=== PATIENT | male | born 1950 | race African-American/Black ===

== ENCOUNTER 2020-03-21 11:23 | Inpatient (IN) | payer MEDICARE ==
[~2020-03-21] VITALS: Ht 182.9 cm; Wt 136.1 kg
[2020-03-21 12:25] LABS: HEMATOCRIT. 41.3 % (42.0-52.0); HEMOGLOBIN. 14.1 g/dL (14.0-18.0); MEAN CORPUSCULAR HEMOGLOBIN 32.7 pg (28.0-32.0); MEAN CORPUSCULAR VOLUME 95.6 fL (80.0-94.0); MEAN PLATELET VOLUME 8.6 fl (7.4-10.4); PLATELET 104 x1000/uL (130-400); RED BLOOD CELL COUNT 4.32 mill/uL (4.7-6.1); RED CELL DISTRIBUTION WIDTH 14.6 % (11.6-14.6)
[2020-03-21 12:32] LABS: CHLORIDE 103 mEq/L (98-107)
[2020-03-21 12:35] LABS: INR 1.2; PROTHROMBIN TIME 12.5 sec (9.6-11.0)
[2020-03-21 13:07] LABS: PLATELET ESTIMATE DECREASED
[2020-03-21] MEDS ORDERED: LEVOFLOXACIN 750MG PREMIX 150 ML IV ONE (13:15)
[2020-03-21] MEDS ORDERED: SUCCINYLCHOLINE CHLORIDE 200MG/10ML IV ONE (14:00)
[2020-03-21] MEDS ORDERED: PROPOFOL 10MG/ML 100ML 100 ML IV ONE (14:00)
[2020-03-21] MEDS ORDERED: ETOMIDATE 2MG/ML 10ML VIAL IV ONE (14:00)
[2020-03-21 14:01] LABS: BG BASE EXCESS -1.4 mmol/L (-2.0-2.0); BG CARBOXYHEMOGLOBIN 0.4 % (0.5-1.5); BG DEOXYHEMOGLOBIN 14.6 % (0.0-5.0); BG FRACTION INSPIRED OXYGEN 36; BG HCO3 ACT 21.2 mmol/L (22.0-26.0); BG METHEMOGLOBIN 0.2 % (0.0-1.5); BG OXYGEN SATURATION 85.3 % (92.0-98.5); BG OXYHEMOGLOBIN 84.8 % (94.0-97.0); BG PCO2 31.1 mmHg (35.0-45.0); BG PH 7.451 (7.350-7.450); BG PO2 45.4 mmHg (75.0-100.0); BG SAMPLE SITE LEFT RADIAL; BG TOTAL HEMOGLOBIN 18.7 g/dL (12.0-18.0); BG TOTAL RESPIRATORY RATE 49 b/min; BG VENT MODE NASAL CANNULA
[2020-03-21] MEDS ORDERED: NOREPINEPHRINE 8 MG in DEXT 5% WATER 242 ML IV STA (15:31)
[2020-03-21] MEDS ORDERED: NOREPINEPHRINE 8MG/250ML PMX 242 ML IV STA (15:46)
[2020-03-21 16:51] LABS: CLARITY URINE CLEAR (CLEAR); COLOR URINE DARK YELLOW (YELLOW); KETONES URINE TRACE (NEGATIVE); LEUKOCYTE ESTERASE URINE NEGATIVE (NEGATIVE); NITRITE URINE NEGATIVE (NEGATIVE); OCCULT BLOOD URINE NEGATIVE (NEGATIVE); PROTEIN URINE 1+ (NEGATIVE); SPECIFIC GRAVITY URINE 1.026 (1.005-1.030)
[2020-03-21] MEDS ORDERED: CLONIDINE 0.1MG TABLET PO PRN (17:15)
[2020-03-21] MEDS ORDERED: NOREPINEPHRINE 8 MG in DEXT 5% WATER 242 ML IV PRN (17:15)
[2020-03-21] MEDS ORDERED: NA PHOS,M-B/NA PHOS,DI-BA ENEMA 118ML PR PRN (17:15)
[2020-03-21] MEDS ORDERED: MAGNESIUM/ALUMINUM HYDROXIDE/SIMETHICONE 30ML UDC PO PRN (17:15)
[2020-03-21] MEDS ORDERED: ONDANSETRON HCL 4MG/2ML INJ IV PRN (17:15)
[2020-03-21] MEDS ORDERED: DOCUSATE SODIUM 100MG CAPSULE PO PRN (17:15)
[2020-03-21] MEDS ORDERED: ACETAMINOPHEN 325MG TABLET PO PRN ×2 (17:15)
[2020-03-21] MEDS ORDERED: ALBUTEROL 6.7GM HFA INHALER ORI PRN (17:30)
[2020-03-21] MEDS ORDERED: NOREPINEPHRINE 8MG/250ML PMX 250 ML IV PRN (17:48)
[2020-03-21 18:31] LABS: BG BASE EXCESS -1.2 mmol/L (-2.0-2.0); BG CARBOXYHEMOGLOBIN 0.5 % (0.5-1.5); BG DEOXYHEMOGLOBIN 5.2 % (0.0-5.0); BG FRACTION INSPIRED OXYGEN 100; BG HCO3 ACT 22.4 mmol/L (22.0-26.0); BG METHEMOGLOBIN 0.2 % (0.0-1.5); BG OXYGEN SATURATION 94.8 % (92.0-98.5); BG OXYHEMOGLOBIN 94.1 % (94.0-97.0); BG PCO2 34.2 mmHg (35.0-45.0); BG PH 7.434 (7.350-7.450); BG PO2 68.9 mmHg (75.0-100.0); BG SAMPLE SITE RIGHT RADIAL; BG TOTAL HEMOGLOBIN 14.2 g/dL (12.0-18.0); BG VENT MODE VENT - AC
[2020-03-21 20:07] LABS: *AMPHETAMINES SCREEN URINE NEGATIVE (NEGATIVE); *BARBITURATES SCREEN URINE NEGATIVE (NEGATIVE); *BENZODIAZEPINES SCREEN URINE NEGATIVE (NEGATIVE); *COCAINE SCREEN URINE NEGATIVE (NEGATIVE); METHADONE URINE SCREEN NEGATIVE (NEGATIVE); OPIATES URINE SCREEN NEGATIVE (NEGATIVE); PHENCYCLIDINE URINE SCREEN NEGATIVE (NEGATIVE)
[2020-03-21 20:08] LABS: CANNABINOID URINE SCREEN NEGATIVE (NEGATIVE)
[2020-03-21] MEDS ORDERED: NOREPINEPHRINE 32 MG in DEXT 5% WATER 218 ML IV PRN (21:00)
[2020-03-21] MEDS: ALBUTEROL 6.7GM HFA INHALER ORI SCH (21:48)
[2020-03-22] VITALS (91 sets, daily range): BP systolic 73–183; BP diastolic 49–103
[2020-03-22] MEDS: ENOXAPARIN 150MG/ML SYR SUBCUT SCH ×3 (00:41→18:35)
[2020-03-22 00:59] LABS: CREATINE KINASE MB FRACTION 10.3 ng/mL (0.5-3.6)
[2020-03-22] MEDS: ALBUTEROL 6.7GM HFA INHALER ORI SCH ×4 (03:05→21:00)
[2020-03-22] MEDS: PROPOFOL 10MG/ML 100ML 100 ML IV PRN ×7 (03:19→21:38)
[2020-03-22] MEDS: NOREPINEPHRINE 32 MG in DEXT 5% WATER 218 ML IV PRN ×3 (03:22→21:46)
[2020-03-22 05:47] LABS: CREATINE KINASE MB FRACTION 16.2 ng/mL (0.5-3.6)
[2020-03-22] MEDS: ASPIRIN 325MG TABLET PO SCH (10:05)
[2020-03-22] MEDS: ZINC SULFATE 220 MG ( 50 ) CAPSULE PO SCH (10:05)
[2020-03-22] MEDS: MEROPENEM 1,000 MG in SODIUM CHLORIDE 0.9% 100 ML IV SCH ×2 (10:05→18:33)
[2020-03-22 10:16] LABS: BG BASE EXCESS -3.8 mmol/L (-2.0-2.0); BG CARBOXYHEMOGLOBIN 0.3 % (0.5-1.5); BG DEOXYHEMOGLOBIN 2.2 % (0.0-5.0); BG FRACTION INSPIRED OXYGEN 100; BG HCO3 ACT 22.1 mmol/L (22.0-26.0); BG METHEMOGLOBIN 0.1 % (0.0-1.5); BG OXYGEN SATURATION 97.8 % (92.0-98.5); BG OXYHEMOGLOBIN 97.4 % (94.0-97.0); BG PCO2 43.3 mmHg (35.0-45.0); BG PH 7.326 (7.350-7.450); BG PO2 108.3 mmHg (75.0-100.0); BG SAMPLE SITE RIGHT RADIAL; BG TOTAL HEMOGLOBIN 14.4 g/dL (12.0-18.0); BG TOTAL RESPIRATORY RATE 17 b/min; BG VENT MODE VENT - AC
[2020-03-22] MEDS ORDERED: VANCOMYCIN 2,000 MG in DEXT 5% WATER 500 ML IV SCH (11:00)
[2020-03-22] MEDS: FAMOTIDINE 20MG/2ML VIAL IV SCH ×2 (11:20→21:48)
[2020-03-22] MEDS: ASCORBIC ACID 500 MG TABLET PO SCH ×2 (11:20→21:48)
[2020-03-22] MEDS ORDERED: SUCCINYLCHOLINE CHLORIDE 200MG/10ML IV ONE (14:00)
[2020-03-22] MEDS ORDERED: ETOMIDATE 2MG/ML 10ML VIAL IV ONE (14:00)
[2020-03-23] VITALS (85 sets, daily range): BP systolic 101–129; BP diastolic 62–82
[2020-03-23] MEDS: PROPOFOL 10MG/ML 100ML 100 ML IV PRN ×5 (01:38→19:14)
[2020-03-23] MEDS: MEROPENEM 1,000 MG in SODIUM CHLORIDE 0.9% 100 ML IV SCH ×3 (02:46→17:37)
[2020-03-23] MEDS: ALBUTEROL 6.7GM HFA INHALER ORI SCH (03:17)
[2020-03-23] MEDS: ACETAMINOPHEN 650MG/20.3ML UDC PO PRN (04:37)
[2020-03-23 05:27] LABS: HEMATOCRIT. 40.5 % (42.0-52.0); HEMOGLOBIN. 13.5 g/dL (14.0-18.0); MEAN CORPUSCULAR HEMOGLOBIN 31.9 pg (28.0-32.0); MEAN CORPUSCULAR VOLUME 95.9 fL (80.0-94.0); MEAN PLATELET VOLUME 10.7 fl (7.4-10.4); PLATELET 57 x1000/uL (130-400); RED BLOOD CELL COUNT 4.22 mill/uL (4.7-6.1)
[2020-03-23] MEDS ORDERED: VANCOMYCIN 1500MG in DEXTROSE 5% WATER 250ML IV SCH (06:00)
[2020-03-23] MEDS: ENOXAPARIN 150MG/ML SYR SUBCUT SCH ×2 (06:13→17:38)
[2020-03-23] MEDS ORDERED: ALBUTEROL (0.083%) 2.5MG/3ML NEB HHN PRN (07:45)
[2020-03-23 08:15] LABS: PLATELET ESTIMATE DECREAS
[2020-03-23] MEDS: ALBUTEROL (0.083%) 2.5MG/3ML NEB HHN SCH ×3 (08:18→20:49)
[2020-03-23] MEDS: FAMOTIDINE 20MG/2ML VIAL IV SCH ×2 (08:25→21:01)
[2020-03-23] MEDS: ZINC SULFATE 220 MG ( 50 ) CAPSULE PO SCH (08:25)
[2020-03-23] MEDS: ASCORBIC ACID 500 MG TABLET PO SCH ×2 (08:25→21:01)
[2020-03-23] MEDS: ASPIRIN 325MG TABLET PO SCH (08:25)
[2020-03-23 08:37] LABS: BG CARBOXYHEMOGLOBIN 0.3 % (0.5-1.5); BG DEOXYHEMOGLOBIN 0.6 % (0.0-5.0); BG HCO3 ACT 24.4 mmol/L (22.0-26.0); BG METHEMOGLOBIN 0.4 % (0.0-1.5); BG OXYGEN SATURATION 99.4 % (92.0-98.5); BG OXYHEMOGLOBIN 98.7 % (94.0-97.0); BG PCO2 43.3 mmHg (35.0-45.0); BG PH 7.369 (7.350-7.450); BG PO2 286.5 mmHg (75.0-100.0); BG SAMPLE SITE RIGHT RADIAL; BG VENT MODE VENT - AC
[2020-03-23] MEDS ORDERED: POTASSIUM CHLORIDE INJ 40 MEQ in DEXT 5% WATER 500 ML IV SCH (12:00)
[2020-03-24] VITALS (61 sets, daily range): BP systolic 101–152; BP diastolic 48–76
[2020-03-24] MEDS: PROPOFOL 10MG/ML 100ML 100 ML IV PRN ×4 (01:04→23:18)
[2020-03-24] MEDS: ALBUTEROL (0.083%) 2.5MG/3ML NEB HHN SCH ×4 (01:59→20:47)
[2020-03-24] MEDS: MEROPENEM 1,000 MG in SODIUM CHLORIDE 0.9% 100 ML IV SCH ×2 (02:16→14:21)
[2020-03-24] MEDS: ACETAMINOPHEN 650MG/20.3ML UDC PO PRN ×2 (04:50→21:04)
[2020-03-24 06:21] LABS: HEMATOCRIT. 40.9 % (42.0-52.0); HEMOGLOBIN. 13.5 g/dL (14.0-18.0); MEAN CORPUSCULAR HEMOGLOBIN 31.9 pg (28.0-32.0); MEAN CORPUSCULAR VOLUME 96.7 fL (80.0-94.0); MEAN PLATELET VOLUME 10.4 fl (7.4-10.4); PLATELET 54 x1000/uL (130-400); RED BLOOD CELL COUNT 4.24 mill/uL (4.7-6.1); RED CELL DISTRIBUTION WIDTH 15.4 % (11.6-14.6)
[2020-03-24 06:32] LABS: CHLORIDE 110 mEq/L (98-107)
[2020-03-24] MEDS: ENOXAPARIN 150MG/ML SYR SUBCUT SCH ×2 (07:13→18:00)
[2020-03-24] MEDS: ZINC SULFATE 220 MG ( 50 ) CAPSULE PO SCH (08:34)
[2020-03-24] MEDS: FAMOTIDINE 20MG/2ML VIAL IV SCH ×2 (08:34→20:52)
[2020-03-24] MEDS: ASCORBIC ACID 500 MG TABLET PO SCH ×2 (08:34→20:52)
[2020-03-24 09:59] LABS: PLATELET ESTIMATE DECREASED
[2020-03-24 10:04] LABS: BG BASE EXCESS -2.1 mmol/L (-2.0-2.0); BG CARBOXYHEMOGLOBIN 0.3 % (0.5-1.5); BG DEOXYHEMOGLOBIN 1.7 % (0.0-5.0); BG FRACTION INSPIRED OXYGEN 40; BG HCO3 ACT 21.9 mmol/L (22.0-26.0); BG METHEMOGLOBIN 0.3 % (0.0-1.5); BG OXYGEN SATURATION 98.3 % (92.0-98.5); BG OXYHEMOGLOBIN 97.7 % (94.0-97.0); BG PCO2 35.4 mmHg (35.0-45.0); BG PO2 121.3 mmHg (75.0-100.0); BG SAMPLE SITE RIGHT RADIAL; BG TOTAL HEMOGLOBIN 13.9 g/dL (12.0-18.0); BG VENT MODE VENT - AC
[2020-03-24] MEDS ORDERED: VANCOMYCIN 1500MG in DEXTROSE 5% WATER 250ML IV SCH (11:00)
[2020-03-25] VITALS (93 sets, daily range): BP systolic 105–153; BP diastolic 60–82
[2020-03-25] MEDS: ALBUTEROL (0.083%) 2.5MG/3ML NEB HHN SCH ×4 (01:42→19:59)
[2020-03-25] MEDS: MEROPENEM 1,000 MG in SODIUM CHLORIDE 0.9% 100 ML IV SCH ×2 (01:54→14:04)
[2020-03-25] MEDS: PROPOFOL 10MG/ML 100ML 100 ML IV PRN ×5 (03:19→21:20)
[2020-03-25] MEDS: ENOXAPARIN 150MG/ML SYR SUBCUT SCH (05:55)
[2020-03-25] MEDS: ZINC SULFATE 220 MG ( 50 ) CAPSULE PO SCH (09:07)
[2020-03-25] MEDS: FAMOTIDINE 20MG/2ML VIAL IV SCH (09:07)
[2020-03-25] MEDS: ASCORBIC ACID 500 MG TABLET PO SCH ×2 (09:07→20:31)
[2020-03-25] MEDS: ACETAMINOPHEN 650MG/20.3ML UDC PO PRN ×2 (09:16→20:31)
[2020-03-25 09:19] LABS: BG BASE EXCESS -0.1 mmol/L (-2.0-2.0); BG CARBOXYHEMOGLOBIN 0.7 % (0.5-1.5); BG DEOXYHEMOGLOBIN 3.4 % (0.0-5.0); BG FRACTION INSPIRED OXYGEN 40; BG HCO3 ACT 24.6 mmol/L (22.0-26.0); BG METHEMOGLOBIN 0.2 % (0.0-1.5); BG OXYGEN SATURATION 96.6 % (92.0-98.5); BG OXYHEMOGLOBIN 95.7 % (94.0-97.0); BG PCO2 40.2 mmHg (35.0-45.0); BG PH 7.404 (7.350-7.450); BG PO2 84.2 mmHg (75.0-100.0); BG SAMPLE SITE RIGHT BRACHIAL; BG TOTAL HEMOGLOBIN 14.5 g/dL (12.0-18.0); BG VENT MODE VENT - AC
[2020-03-25] MEDS ORDERED: FUROSEMIDE 20MG/2ML VIAL IVP NR (11:30)
[2020-03-25] MEDS: METRONIDAZOLE 500MG TABLET PO SCH (20:32)
[2020-03-26] VITALS (84 sets, daily range): BP systolic 101–165; BP diastolic 38–98
[2020-03-26] MEDS: ALBUTEROL (0.083%) 2.5MG/3ML NEB HHN SCH ×4 (01:41→20:51)
[2020-03-26] MEDS: PROPOFOL 10MG/ML 100ML 100 ML IV PRN ×2 (03:19→10:05)
[2020-03-26] MEDS: ACETAMINOPHEN 650MG/20.3ML UDC PO PRN (03:27)
[2020-03-26] MEDS: ENOXAPARIN 150MG/ML SYR SUBCUT SCH (05:20)
[2020-03-26 09:17] LABS: BG BASE EXCESS -1.3 mmol/L (-2.0-2.0); BG CARBOXYHEMOGLOBIN 1.1 % (0.5-1.5); BG DEOXYHEMOGLOBIN 1.7 % (0.0-5.0); BG FRACTION INSPIRED OXYGEN 40; BG METHEMOGLOBIN 0.2 % (0.0-1.5); BG OXYGEN SATURATION 98.3 % (92.0-98.5); BG PCO2 42.1 mmHg (35.0-45.0); BG PH 7.373 (7.350-7.450); BG PO2 117.9 mmHg (75.0-100.0); BG SAMPLE SITE RIGHT RADIAL; BG TOTAL HEMOGLOBIN 13.6 g/dL (12.0-18.0); BG VENT MODE VENT - SIMV
[2020-03-26] MEDS: FAMOTIDINE 20MG/2ML VIAL IV SCH (09:41)
[2020-03-26] MEDS: ASCORBIC ACID 500 MG TABLET PO SCH ×2 (09:41→20:13)
[2020-03-26] MEDS: ZINC SULFATE 220 MG ( 50 ) CAPSULE PO SCH (09:41)
[2020-03-26] MEDS: CEFEPIME 1,000 MG in DEXTROSE 5% WATER 50 ML IV SCH (09:41)
[2020-03-26] MEDS: METRONIDAZOLE 500MG TABLET PO SCH ×2 (09:45→20:13)
[2020-03-26 16:08] LABS: BG BASE EXCESS -1.9 mmol/L (-2.0-2.0); BG CARBOXYHEMOGLOBIN 0.4 % (0.5-1.5); BG DEOXYHEMOGLOBIN 1.5 % (0.0-5.0); BG FRACTION INSPIRED OXYGEN 40; BG METHEMOGLOBIN 0.2 % (0.0-1.5); BG OXYGEN SATURATION 98.5 % (92.0-98.5); BG OXYHEMOGLOBIN 97.9 % (94.0-97.0); BG PCO2 40.1 mmHg (35.0-45.0); BG PH 7.377 (7.350-7.450); BG PO2 128.7 mmHg (75.0-100.0); BG SAMPLE SITE RIGHT RADIAL; BG TOTAL HEMOGLOBIN 14.3 g/dL (12.0-18.0); BG VENT MODE VENT - CPAP
[2020-03-26 18:33] LABS: CLARITY URINE CLOUDY (CLEAR); COLOR URINE YELLOW (YELLOW); KETONES URINE NEGATIVE (NEGATIVE); LEUKOCYTE ESTERASE URINE TRACE (NEGATIVE); NITRITE URINE NEGATIVE (NEGATIVE); OCCULT BLOOD URINE 3+ (NEGATIVE); PROTEIN URINE 1+ (NEGATIVE); SPECIFIC GRAVITY URINE 1.021 (1.005-1.030); UROBILINOGEN URINE 0.2 E.U./dL (0.2-1.0)
[2020-03-27] VITALS (40 sets, daily range): BP systolic 121–191; BP diastolic 59–131
[2020-03-27] MEDS: ALBUTEROL (0.083%) 2.5MG/3ML NEB HHN SCH ×4 (02:27→20:43)
[2020-03-27 05:44] LABS: HEMATOCRIT. 39.1 % (42.0-52.0); HEMOGLOBIN. 13.3 g/dL (14.0-18.0); MEAN CORPUSCULAR HEMOGLOBIN 32.4 pg (28.0-32.0); MEAN CORPUSCULAR VOLUME 95.1 fL (80.0-94.0); MEAN PLATELET VOLUME 10.2 fl (7.4-10.4); PLATELET 109 x1000/uL (130-400); RED BLOOD CELL COUNT 4.11 mill/uL (4.7-6.1); RED CELL DISTRIBUTION WIDTH 15.2 % (11.6-14.6)
[2020-03-27] MEDS: ENOXAPARIN 150MG/ML SYR SUBCUT SCH (06:57)
[2020-03-27 08:15] LABS: PLATELET ESTIMATE DECREASED
[2020-03-27] MEDS: ZINC SULFATE 220 MG ( 50 ) CAPSULE PO SCH (09:58)
[2020-03-27] MEDS: CEFEPIME 1,000 MG in DEXTROSE 5% WATER 50 ML IV SCH (09:58)
[2020-03-27] MEDS: ASCORBIC ACID 500 MG TABLET PO SCH ×2 (09:58→22:29)
[2020-03-27] MEDS: METRONIDAZOLE 500MG TABLET PO SCH ×2 (09:58→22:29)
[2020-03-27] MEDS: FAMOTIDINE 20MG/2ML VIAL IV SCH (09:58)
[2020-03-27] MEDS ORDERED: DIATR MEGLU/DIATRIZOATE SOLN 30ML PO SCH (15:30)
[2020-03-28] VITALS (31 sets, daily range): BP systolic 126–171; BP diastolic 55–93
[2020-03-28] MEDS: ALBUTEROL (0.083%) 2.5MG/3ML NEB HHN SCH ×4 (02:16→21:22)
[2020-03-28 05:43] LABS: HEMATOCRIT. 41.8 % (42.0-52.0); HEMOGLOBIN. 13.9 g/dL (14.0-18.0); MEAN CORPUSCULAR HEMOGLOBIN 31.8 pg (28.0-32.0); MEAN CORPUSCULAR VOLUME 95.7 fL (80.0-94.0); MEAN PLATELET VOLUME 10.4 fl (7.4-10.4); PLATELET 163 x1000/uL (130-400); RED BLOOD CELL COUNT 4.37 mill/uL (4.7-6.1); RED CELL DISTRIBUTION WIDTH 15.5 % (11.6-14.6)
[2020-03-28] MEDS: ENOXAPARIN 150MG/ML SYR SUBCUT SCH (05:50)
[2020-03-28 06:02] LABS: PHOSPHORUS 5.6 mg/dL (2.5-4.9)
[2020-03-28 08:39] LABS: BG BASE EXCESS -2.2 mmol/L (-2.0-2.0); BG CARBOXYHEMOGLOBIN 0.8 % (0.5-1.5); BG DEOXYHEMOGLOBIN 4.7 % (0.0-5.0); BG FRACTION INSPIRED OXYGEN 21; BG HCO3 ACT 21.1 mmol/L (22.0-26.0); BG METHEMOGLOBIN 0.1 % (0.0-1.5); BG OXYGEN SATURATION 95.3 % (92.0-98.5); BG OXYHEMOGLOBIN 94.4 % (94.0-97.0); BG PCO2 32.4 mmHg (35.0-45.0); BG PH 7.432 (7.350-7.450); BG PO2 74.3 mmHg (75.0-100.0); BG SAMPLE SITE RIGHT RADIAL; BG TOTAL HEMOGLOBIN 14.2 g/dL (12.0-18.0); BG VENT MODE ROOM AIR
[2020-03-28] MEDS: FAMOTIDINE 20MG/2ML VIAL IV SCH (08:52)
[2020-03-28] MEDS: CEFEPIME 1,000 MG in DEXTROSE 5% WATER 50 ML IV SCH (08:52)
[2020-03-28] MEDS: AMLODIPINE 5MG TABLET PO SCH (08:53)
[2020-03-28] MEDS: ASCORBIC ACID 500 MG TABLET PO SCH ×2 (08:54→21:40)
[2020-03-28] MEDS: METRONIDAZOLE 500MG TABLET PO SCH ×2 (08:54→21:40)
[2020-03-28] MEDS: ZINC SULFATE 220 MG ( 50 ) CAPSULE PO SCH (08:54)
[2020-03-28 11:04] LABS: PLATELET ESTIMATE NORMAL
[2020-03-29] VITALS (12 sets, daily range): BP systolic 112–147; BP diastolic 57–78
[2020-03-29] MEDS: ALBUTEROL (0.083%) 2.5MG/3ML NEB HHN SCH ×4 (02:38→19:48)
[2020-03-29] MEDS: ENOXAPARIN 150MG/ML SYR SUBCUT SCH (05:28)
[2020-03-29 06:36] LABS: CHLORIDE 112 mEq/L (98-107)
[2020-03-29 06:38] LABS: HEMATOCRIT. 36.9 % (42.0-52.0); HEMOGLOBIN. 12.3 g/dL (14.0-18.0); MEAN CORPUSCULAR HEMOGLOBIN 31.3 pg (28.0-32.0); MEAN CORPUSCULAR VOLUME 93.8 fL (80.0-94.0); MEAN PLATELET VOLUME 10.4 fl (7.4-10.4); PLATELET 212 x1000/uL (130-400); RED BLOOD CELL COUNT 3.93 mill/uL (4.7-6.1)
[2020-03-29 06:46] LABS: PHOSPHORUS 4.8 mg/dL (2.5-4.9)
[2020-03-29 08:50] LABS: PLATELET ESTIMATE NORMAL
[2020-03-29] MEDS: METRONIDAZOLE 500MG TABLET PO SCH ×2 (10:00→20:28)
[2020-03-29] MEDS: ZINC SULFATE 220 MG ( 50 ) CAPSULE PO SCH (10:00)
[2020-03-29] MEDS: ASCORBIC ACID 500 MG TABLET PO SCH ×2 (10:00→20:28)
[2020-03-29] MEDS: AMLODIPINE 5MG TABLET PO SCH (10:00)
[2020-03-29] MEDS ORDERED: POTASSIUM CHLORIDE 20MEQ/PACKET PO NR (10:00)
[2020-03-29] MEDS: FAMOTIDINE 20MG/2ML VIAL IV SCH (10:01)
[2020-03-29] MEDS: ASPIRIN 81MG TABLET PO SCH (10:01)
[2020-03-29] MEDS: CEFEPIME 1,000 MG in DEXTROSE 5% WATER 50 ML IV SCH (13:10)
[2020-03-30] VITALS (7 sets, daily range): BP systolic 128–157; BP diastolic 66–77
[2020-03-30] MEDS: ALBUTEROL (0.083%) 2.5MG/3ML NEB HHN SCH ×4 (02:50→21:05)
[2020-03-30] MEDS: ENOXAPARIN 150MG/ML SYR SUBCUT SCH (06:10)
[2020-03-30 07:59] LABS: HEMOGLOBIN. 12.7 g/dL (14.0-18.0); MEAN CORPUSCULAR HEMOGLOBIN 31.1 pg (28.0-32.0); MEAN CORPUSCULAR VOLUME 93.4 fL (80.0-94.0); MEAN PLATELET VOLUME 9.9 fl (7.4-10.4); PLATELET 258 x1000/uL (130-400); RED BLOOD CELL COUNT 4.07 mill/uL (4.7-6.1)
[2020-03-30 08:13] LABS: PHOSPHORUS 5.7 mg/dL (2.5-4.9)
[2020-03-30] MEDS: ZINC SULFATE 220 MG ( 50 ) CAPSULE PO SCH (08:50)
[2020-03-30] MEDS: ASPIRIN 81MG TABLET PO SCH (08:50)
[2020-03-30] MEDS: ASCORBIC ACID 500 MG TABLET PO SCH ×2 (08:50→20:42)
[2020-03-30] MEDS: AMLODIPINE 5MG TABLET PO SCH (08:50)
[2020-03-30] MEDS: CEFEPIME 1,000 MG in DEXTROSE 5% WATER 50 ML IV SCH (08:51)
[2020-03-30] MEDS: FAMOTIDINE 20MG/2ML VIAL IV SCH (08:51)
[2020-03-30] MEDS: METRONIDAZOLE 500MG TABLET PO SCH (08:51)
[2020-03-30 14:04] LABS: ATYPICAL LYMPHOCYTES 1
[2020-03-30 14:05] LABS: PLATELET ESTIMATE NORMAL
[2020-03-31] VITALS: BP 132/70
[2020-03-31] MEDS: ALBUTEROL (0.083%) 2.5MG/3ML NEB HHN SCH ×3 (02:43→21:31)
[2020-03-31 04:00] VITALS: BP 103/67
[2020-03-31] MEDS: ENOXAPARIN 150MG/ML SYR SUBCUT SCH (05:01)
[2020-03-31 06:55] LABS: HEMATOCRIT. 37.2 % (42.0-52.0); HEMOGLOBIN. 12.5 g/dL (14.0-18.0); MEAN CORPUSCULAR HEMOGLOBIN 31.5 pg (28.0-32.0); MEAN CORPUSCULAR VOLUME 93.7 fL (80.0-94.0); MEAN PLATELET VOLUME 9.9 fl (7.4-10.4); PLATELET 278 x1000/uL (130-400); RED BLOOD CELL COUNT 3.97 mill/uL (4.7-6.1); RED CELL DISTRIBUTION WIDTH 14.7 % (11.6-14.6)
[2020-03-31 08:00] VITALS: BP 136/69
[2020-03-31] MEDS: ASPIRIN 81MG TABLET PO SCH (09:23)
[2020-03-31] MEDS: ZINC SULFATE 220 MG ( 50 ) CAPSULE PO SCH (09:24)
[2020-03-31] MEDS: FAMOTIDINE 20MG/2ML VIAL IV SCH (09:24)
[2020-03-31] MEDS: ASCORBIC ACID 500 MG TABLET PO SCH ×2 (09:24→21:23)
[2020-03-31] MEDS: AMLODIPINE 5MG TABLET PO SCH (09:24)
[2020-03-31] MEDS ORDERED: POTASSIUM CHLORIDE 20MEQ TABLET SR PO SCH (09:30)
[2020-03-31 12:00] VITALS: BP 129/67
[2020-03-31 13:29] LABS: PLATELET ESTIMATE NORMAL
[2020-03-31 16:00] VITALS: BP 145/76
[2020-03-31 20:00] VITALS: BP 139/73
[2020-04-01] VITALS: BP 95/65
[2020-04-01] MEDS: ALBUTEROL (0.083%) 2.5MG/3ML NEB HHN SCH ×4 (01:39→22:01)
[2020-04-01 04:00] VITALS: BP 150/71
[2020-04-01] MEDS: ENOXAPARIN 150MG/ML SYR SUBCUT SCH (05:21)
[2020-04-01 07:26] LABS: HEMATOCRIT. 38.8 % (42.0-52.0); HEMOGLOBIN. 12.9 g/dL (14.0-18.0); MEAN CORPUSCULAR HEMOGLOBIN 31.8 pg (28.0-32.0); MEAN CORPUSCULAR VOLUME 95.3 fL (80.0-94.0); MEAN PLATELET VOLUME 9.9 fl (7.4-10.4); PLATELET 317 x1000/uL (130-400); RED BLOOD CELL COUNT 4.07 mill/uL (4.7-6.1); RED CELL DISTRIBUTION WIDTH 14.7 % (11.6-14.6)
[2020-04-01 07:42] LABS: PHOSPHORUS 5.3 mg/dL (2.5-4.9)
[2020-04-01 08:00] VITALS: BP 160/72
[2020-04-01] MEDS: ASCORBIC ACID 500 MG TABLET PO SCH ×2 (08:55→21:45)
[2020-04-01] MEDS: AMLODIPINE 5MG TABLET PO SCH (08:55)
[2020-04-01] MEDS: ZINC SULFATE 220 MG ( 50 ) CAPSULE PO SCH (08:55)
[2020-04-01] MEDS: ASPIRIN 81MG TABLET PO SCH (08:55)
[2020-04-01] MEDS: FAMOTIDINE 20MG/2ML VIAL IV SCH (08:55)
[2020-04-01 10:25] LABS: PLATELET ESTIMATE NORMAL
[2020-04-01 16:00] VITALS: BP 106/75
[2020-04-01] MEDS: LEVOFLOXACIN 250MG TABLET PO SCH (18:01)
[2020-04-01 20:00] VITALS: BP 138/62
[2020-04-01] MEDS: METRONIDAZOLE 250MG TABLET PO SCH (21:45)
[2020-04-02] VITALS: BP 132/56
[2020-04-02] MEDS: ALBUTEROL (0.083%) 2.5MG/3ML NEB HHN SCH ×4 (01:54→21:01)
[2020-04-02 04:00] VITALS: BP 131/77
[2020-04-02] MEDS: ENOXAPARIN 150MG/ML SYR SUBCUT SCH (05:55)
[2020-04-02] MEDS: METRONIDAZOLE 250MG TABLET PO SCH ×3 (05:55→21:56)
[2020-04-02 07:27] LABS: HEMATOCRIT. 44.8 % (42.0-52.0); HEMOGLOBIN. 14.7 g/dL (14.0-18.0); MEAN CORPUSCULAR HEMOGLOBIN 31.7 pg (28.0-32.0); MEAN CORPUSCULAR VOLUME 96.6 fL (80.0-94.0); PLATELET 182 x1000/uL (130-400); RED BLOOD CELL COUNT 4.64 mill/uL (4.7-6.1); RED CELL DISTRIBUTION WIDTH 15.1 % (11.6-14.6)
[2020-04-02 07:38] LABS: PHOSPHORUS 5.3 mg/dL (2.5-4.9)
[2020-04-02 08:00] VITALS: BP 147/79
[2020-04-02] MEDS: ZINC SULFATE 220 MG ( 50 ) CAPSULE PO SCH (09:35)
[2020-04-02] MEDS: FAMOTIDINE 20MG/2ML VIAL IV SCH (09:35)
[2020-04-02] MEDS: ASPIRIN 81MG TABLET PO SCH (09:35)
[2020-04-02] MEDS: ASCORBIC ACID 500 MG TABLET PO SCH ×2 (09:35→21:56)
[2020-04-02] MEDS: AMLODIPINE 10MG TABLET PO SCH (09:56)
[2020-04-02 12:00] VITALS: BP 92/68
[2020-04-02 12:21] LABS: PLATELET ESTIMATE NORMAL
[2020-04-02 16:00] VITALS: BP 153/76
[2020-04-02 20:00] VITALS: BP 127/91
[2020-04-03] VITALS: BP 146/74
[2020-04-03] MEDS: ALBUTEROL (0.083%) 2.5MG/3ML NEB HHN SCH ×5 (01:42→20:34)
[2020-04-03 04:00] VITALS: BP 130/69
[2020-04-03] MEDS: METRONIDAZOLE 250MG TABLET PO SCH ×3 (06:53→20:22)
[2020-04-03] MEDS: ENOXAPARIN 150MG/ML SYR SUBCUT SCH (06:54)
[2020-04-03 07:40] LABS: BASOPHILS % 0.4 % (0.0-2.0); EOSINOPHILS % 0.9 % (0.0-5.0); HEMATOCRIT. 38.2 % (42.0-52.0); HEMOGLOBIN. 13.2 g/dL (14.0-18.0); LYMPHOCYTES % 7.1 % (20.0-50.0); MEAN CORPUSCULAR HEMOGLOBIN 32.2 pg (28.0-32.0); MEAN CORPUSCULAR VOLUME 92.8 fL (80.0-94.0); MEAN PLATELET VOLUME 9.2 fl (7.4-10.4); MONOCYTES % 7.6 % (2.0-8.0); PLATELET 352 x1000/uL (130-400); RED BLOOD CELL COUNT 4.11 mill/uL (4.7-6.1); RED CELL DISTRIBUTION WIDTH 14.7 % (11.6-14.6)
[2020-04-03 08:00] VITALS: BP 141/74
[2020-04-03 08:23] LABS: PHOSPHORUS 4.5 mg/dL (2.5-4.9)
[2020-04-03] MEDS: ASPIRIN 81MG TABLET PO SCH (08:37)
[2020-04-03] MEDS: FAMOTIDINE 20MG/2ML VIAL IV SCH (08:37)
[2020-04-03] MEDS: ZINC SULFATE 220 MG ( 50 ) CAPSULE PO SCH (08:37)
[2020-04-03] MEDS: AMLODIPINE 10MG TABLET PO SCH (08:38)
[2020-04-03] MEDS: ASCORBIC ACID 500 MG TABLET PO SCH ×2 (08:38→20:22)
[2020-04-03 12:00] VITALS: BP 138/77
[2020-04-03 16:00] VITALS: BP 126/73
[2020-04-03] MEDS: LEVOFLOXACIN 250MG TABLET PO SCH (17:49)
[2020-04-03] MEDS: ACETAMINOPHEN 650MG/20.3ML UDC PO PRN (19:44)
[2020-04-03 20:00] VITALS: BP 128/65
[2020-04-04] VITALS (7 sets, daily range): BP systolic 103–138; BP diastolic 67–76
[2020-04-04] MEDS: ALBUTEROL (0.083%) 2.5MG/3ML NEB HHN SCH ×3 (01:26→15:33)
[2020-04-04] MEDS: METRONIDAZOLE 250MG TABLET PO SCH ×2 (05:21→13:26)
[2020-04-04] MEDS: ENOXAPARIN 150MG/ML SYR SUBCUT SCH (05:21)
[2020-04-04] MEDS: AMLODIPINE 10MG TABLET PO SCH (09:00)
[2020-04-04] MEDS: FAMOTIDINE 20MG/2ML VIAL IV SCH (09:06)
[2020-04-04] MEDS: ASPIRIN 81MG TABLET PO SCH (09:06)
[2020-04-04] MEDS: ZINC SULFATE 220 MG ( 50 ) CAPSULE PO SCH (09:06)
[2020-04-04] MEDS: ASCORBIC ACID 500 MG TABLET PO SCH (09:06)
[2020-04-04 11:19] LABS: BASOPHILS % 0.3 % (0.0-2.0); EOSINOPHILS % 1.8 % (0.0-5.0); HEMOGLOBIN. 12.9 g/dL (14.0-18.0); MEAN CORPUSCULAR HEMOGLOBIN 31.6 pg (28.0-32.0); MEAN CORPUSCULAR VOLUME 93.5 fL (80.0-94.0); MEAN PLATELET VOLUME 9.1 fl (7.4-10.4); MONOCYTES % 7.6 % (2.0-8.0); NEUTROPHILS % 80.3 % (40.0-76.0); PLATELET 417 x1000/uL (130-400); RED BLOOD CELL COUNT 4.07 mill/uL (4.7-6.1); RED CELL DISTRIBUTION WIDTH 14.3 % (11.6-14.6)
[2020-04-04 11:33] LABS: PHOSPHORUS 3.5 mg/dL (2.5-4.9)
[2020-04-04] MEDS ORDERED: LEVOFLOXACIN 250MG TABLET PO SCH (16:00)
[2020-04-04] MEDS ORDERED: ENOXAPARIN 150MG/ML SYR SUBCUT SCH (18:00)
== END 2020-04-04 20:25 | DRG 870 ==
LOC: ER 11:23 → ENRESERV 21:08 → MICUSO 03-22 01:27 → MICUNO 03-23 04:15 → 3WST 03-28 16:55 → 8WST 03-30 01:05
PROVIDERS: ADMIT Internal Medicine; ATTEND Internal Medicine
PROC: 5A1955Z Respiratory Ventilation, Greater than 96 Consecutive Hours (ICD-10-PCS; principal; 2020-03-21)
PROC: 0BH18EZ Insertion of Endotracheal Airway into Trachea, Via Natural or Artificial Opening Endoscopic (ICD-10-PCS; 2020-03-21)
PROC: 06HY33Z Insertion of Infusion Device into Lower Vein, Percutaneous Approach (ICD-10-PCS; 2020-03-21)
PROC: B54BZZA Ultrasonography of Right Lower Extremity Veins, Guidance (ICD-10-PCS; 2020-03-21)
DX: A41.51 Sepsis due to Escherichia coli [E. coli] (principal); R65.21 Severe sepsis with septic shock; J96.01 Acute respiratory failure with hypoxia; I21.A1 Myocardial infarction type 2; G92 Toxic encephalopathy; N17.0 Acute kidney failure with tubular necrosis; E43 Unspecified severe protein-calorie malnutrition; I50.43 Acute on chronic combined systolic (congestive) and diastolic (congestive) heart failure; J15.9 Unspecified bacterial pneumonia; Z68.41 Body mass index [BMI] 40.0-44.9, adult; M62.82 Rhabdomyolysis; E66.01 Morbid (severe) obesity due to excess calories; I27.20 Pulmonary hypertension, unspecified; I11.0 Hypertensive heart disease with heart failure; Z20.828 Contact with and (suspected) exposure to other viral communicable diseases; B96.89 Other specified bacterial agents as the cause of diseases classified elsewhere; D69.6 Thrombocytopenia, unspecified; K76.0 Fatty (change of) liver, not elsewhere classified; K81.9 Cholecystitis, unspecified; Z79.899 Other long term (current) drug therapy; R74.01 Elevation of levels of liver transaminase levels
CPT/HCPCS: 36415; 36600; 70551; 71045; 74176; 76770; 80048; 80053; 80202; 80305; 81003; 82140; 82375; 82550; 82553; 82728; 82805; 82962; 83036; 83615; 83735; 83880; 84100; 84145; 84478; 84484; 85025; 85379; 87070; 87077; 87106; 87186; 87635; 92610; 93005; 93306; 93970; 94002; 94003; 94640; 97110; 97163; 97166; 97530; 97535; 99291; J0330; J0692; J1650; J1940; J1956; J2185; J2704; J3370; J3480; J3490; J7050; J7060